=== PATIENT | male | born 1975 | race African-American/Black ===

== ENCOUNTER 2017-02-12 22:17 | Emergency (ER) | payer MEDICAID ==
[~2017-02-12] VITALS: Ht 177.8 cm; Wt 63.5 kg
[~2017-02-12 22:17] MED LIST: ADVIL200 M2 ORAL; ALBUTEROL SULF8.5 GM INH; DOXYCYCLINE MO100 MG ORAL
[2017-02-12 22:30] VITALS: BP 113/65
[2017-02-12] MEDS ORDERED: Ketorolac 30mg Inj IV ONE (23:00)
[2017-02-12 23:30] LABS: MEAN CORPUSCULAR HEMOGLOBIN 25.4 PG (27.0-31.0); MEAN CORPUSCULAR HGB CONC 32.7 G/DL (32.0-36.0); MEAN CORPUSCULAR VOLUME 77 FL (80-99); MEAN PLATELET VOLUME 4.9 FL (6.5-10.1); PLATELET COUNT 282 K/UL (150-450); RED BLOOD COUNT 2.64 M/UL (4.70-6.10); RED CELL DISTRIBUTION WIDTH 14.3 % (11.6-14.8)
[2017-02-12 23:46] LABS: ALANINE AMINOTRANSFERASE 45 U/L (3-41); ALBUMIN/GLOBULIN RATIO 1.7 (1.0-2.7); ANION GAP 15 (5-15); ASPARTATE AMINO TRANSFERASE 42 U/L (5-40); CALCIUM 8.3 mg/dL (8.6-10.2); CARBON DIOXIDE 24 mEQ/L (20-30); CHLORIDE 100 mEQ/L (98-107); CREATININE 0.8 mg/dL (0.7-1.2); GLOMERULAR FILTRATION RATE > 60 mL/min (>60); HEMOLYSIS 1; LIPASE 22 U/L (< 60); POTASSIUM 3.4 mEQ/L (3.4-4.9); SODIUM 139 mEQ/L (135-145); TOTAL PROTEIN 6.5 g/dL (6.6-8.7)
[2017-02-13 00:21] LABS: PROTHROMBIN TIME 10.6 SEC (9.30-11.50)
[2017-02-13 01:30] VITALS: BP 146/62
[2017-02-13 01:52] VITALS: BP 118/72
--- NOTE | 2017-02-13 01:57 | Emergency Room Report ---
History of Present Illness General Chief Complaint: Gastrointestinal Bleed Source: Patient Present Illness HPI Is a 40-year-old male with no past medical history. He presents with chief complaint of generalized weakness. He said for about a week now he has been complaining abdominal cramps with profuse diarrhea. Notice some blood in the stool. Has been having this problem intermittently for several months. Diarrhea resolved now. Now with nausea and vomiting x2 today. He came in because he felt very weak. Any exertion with tire now. No chest pain. No nausea no vomiting. No fever or chills. No Weight loss. Allergies: Coded Allergies: No Known Allergies (Unverified , 08/21/15) Patient History Past Medical History: none, see triage record, old chart reviewed Past Surgical History: none Pertinent Family History: none Social History: Denies: drug use Immunizations: other Reviewed Nursing Documentation: PMH: Agreed, PSxH: Agreed Nursing Documentation-[facility] Past Medical History: No Stated History Review of Systems Constitutional: Reports: weakness Eye: Denies: blurred vision, eye pain ENT: Denies: ear pain, nose congestion, throat swelling Respiratory: Denies: cough, shortness of breath Cardiovascular: Denies: chest pain, palpitations Gastrointestinal: Reports: abdominal pain, diarrhea, nausea, vomiting Musculoskeletal: Denies: back pain, joint pain Skin: Denies: rash Neurological: Denies: headache, numbness Endocrine: Denies: increased thirst, increased urine Hematologic/Lymphatic: Denies: easy bruising All Other Systems: negative except mentioned in HPI Physical Exam Vital Signs Date Time Temp Pulse Resp B/P Pulse Ox O2 Delivery O2 Flow Rate FiO2 02/12/17 22:30 67 14 113/65 100 Room Air 02/12/17 22:33 98.4 vitals normal Sp02 EP Interpretation: reviewed, normal General Appearance: well appearing, no apparent distress, alert Head: normocephalic, atraumatic Eyes: bilateral eye EOMI, bilateral eye PERRL, bilateral eye conjunctivae pale ENT: hearing grossly normal, normal pharynx Neck: full range of motion, supple, no meningismus Respiratory: chest non-tender, lungs clear, normal breath sounds Cardiovascular #1: regular rate, rhythm, no murmur Gastrointestinal: normal bowel sounds, non tender, no mass, no organomegaly, no bruit, non-distended Musculoskeletal: back normal, gait/station normal, normal range of motion Psychiatric: mood/affect normal Skin: warm/dry Medical Decision Making Diagnostic Impression: Primary Impression: Anemia Qualified Codes: D50.8 - Other iron deficiency anemias Additional Impressions: Abdominal pain Qualified Codes: R10.84 - Generalized abdominal pain Nausea vomiting and diarrhea ER Course Patient presents with anemia requiring blood transfusion. This is most likely chronic in nature. No evidence of acute bleeding. The rectal bleeding is most likely hemorrhoidal bleeding. He will need further workup. He consented for blood transfusion. I discussed the case with Dr. Andrade who accepted pt for transfer to [facility]. No evidence of acute abdomen. No evidence of obstruction. Laboratory Tests Test 02/12/17 23:00 02/13/17 00:00 White Blood Count 6.0 K/UL (4.8-10.8) Red Blood Count 2.64 M/UL (4.70-6.10) L Hemoglobin 6.7 G/DL (14.2-18.0) *L Hematocrit 20.4 % (42.0-52.0) L Mean Corpuscular Volume 77 FL (80-99) L Mean Corpuscular Hemoglobin 25.4 PG (27.0-31.0) L Mean Corpuscular Hemoglobin Concent 32.7 G/DL (32.0-36.0) Red Cell Distribution Width 14.3 % (11.6-14.8) Platelet Count 282 K/UL (150-450) Mean Platelet Volume 4.9 FL (6.5-10.1) L Neutrophils (%) (Auto) % (45.0-75.0) Lymphocytes (%) (Auto) % (20.0-45.0) Monocytes (%) (Auto) % (1.0-10.0) Eosinophils (%) (Auto) % (0.0-3.0) Basophils (%) (Auto) % (0.0-2.0) Sodium Level 139 mEQ/L (135-145) Potassium Level 3.4 mEQ/L (3.4-4.9) Chloride Level 100 mEQ/L (98-107) Carbon Dioxide Level 24 mEQ/L (20-30) Anion Gap 15 (5-15) Blood Urea Nitrogen 13 mg/dL (7-23) Creatinine 0.8 mg/dL (0.7-1.2) Estimat Glomerular Filtration Rate > 60 mL/min (>60) Glucose Level 89 mg/dL (74-106) Calcium Level 8.3 mg/dL (8.6-10.2) L Total Bilirubin 0.5 mg/dL (0.0-1.2) Aspartate Amino Transf (AST/SGOT) 42 U/L (5-40) H Alanine Aminotransferase (ALT/SGPT) 45 U/L (3-41) H Alkaline Phosphatase 40 U/L (40-129) Total Protein 6.5 g/dL (6.6-8.7) L Albumin 4.1 g/dL (3.5-5.2) Globulin 2.4 g/dL Albumin/Globulin Ratio 1.7 (1.0-2.7) Lipase 22 U/L (< 60) Prothrombin Time 10.6 SEC (9.30-11.50) Prothromb Time International Ratio 1.0 (0.9-1.1) Activated Partial Thromboplast Time 23 SEC (23-33) Lab Results Impression labs with anemia Rhythm Strip Diag. Results EP Interpretation: yes Rate: 72 Rhythm: NSR CT/MRI/US Diagnostic Results CT/MRI/US Diagnostic Results : Imaging Test Ordered: CT abdomen and pelvis Impression read by radiologist. Negative. Last Vital Signs Date Time Temp Pulse Resp B/P Pulse Ox O2 Delivery O2 Flow Rate FiO2 02/13/17 01:09 98.5 02/12/17 22:33 92 16 112/69 99 Room Air Status: improved Disposition: XFER SHT-TRM HOSP Referrals: [facility],REFERRING (PCP) LINDSAY CHRISTIAN M.D. Feb 13, 2017 01:57
[2017-02-13 02:07] VITALS: BP 121/71
[2017-02-13 03:00] VITALS: BP 106/68
[2017-02-13 03:30] VITALS: BP 118/62
--- NOTE | 2017-02-13 09:03 | Diagnostic Imaging Report ---
Indications: Abdominal pain Technique: Continuous helical CT imaging of the abdomen and pelvis was performed with automatic exposure control following administration of nonionic IV contrast only, on a Siemens sensation [address] scanner. Axial, coronal, sagittal images were reconstructed at 5 mm slice thickness. No oral contrast was administered per requesting physician's order, despite no contraindications listed. CTDI volume(s): 18 mGy Total DLP: 1071 mGy-cm Findings: Comparison: None Lack of oral contrast limits evaluation of gastrointestinal tract, nondilated throughout. Appendix unremarkable. No obvious mural thickening, adjacent stranding, extraluminal gas or fluid collections identified. Liver parenchyma diffusely decreased attenuation. No obvious surface contour or focal parenchymal abnormality. 2 mm nodular calcific focus upper pole left kidney. No collecting system dilation. Urinary bladder poorly distended with apparent mild diffuse mural thickening. Asymmetric atrophy of right iliopsoas, gluteal, other right hemipelvic muscles. Right iliofemoral artery significantly smaller in caliber than left. Gallbladder, pancreas, spleen, adrenal glands, right kidney, unopacified ureters, prostate, seminal vesicles, remaining vascular structures, retroperitoneum, mesentery, remainder visualized abdominopelvic anatomy unremarkable. Increased interstitial markings and dependent portions of both lung bases. Mild scoliosis of lumbar spine. 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 IMPRESSION: No evidence of acute abdominopelvic disease, with limitation as described. Subtle but potentially significant abnormalities the gastrointestinal tract may be missed. Repeat CT scan with full oral and IV contrast preparation recommended for more complete evaluation, as clinically indicated Apparent mild mural thickening of urinary bladder--underdistention versus hypertrophy versus cystitis Right hemipelvic/lower extremity atrophy, nonspecific, may be developmental or acquired. Associated hypoplasia of the bony right hemipelvis and suggestion of right hip dysplasia favoring developmental abnormality Hepatic steatosis Nonobstructive left nephrolithiasis Pulmonary bibasal interstitial prominence, nonspecific, likely compressive This correlates with [facility] preliminary report.
== END 2017-02-13 03:42 | disposition short-term general hospital (02) ==
LOC: EMR 23:03
DX: D64.9 Anemia, unspecified (principal); R11.2 Nausea with vomiting, unspecified; R19.7 Diarrhea, unspecified; R10.9 Unspecified abdominal pain; R53.1 Weakness
CPT/HCPCS: 36415; 74177; 80053; 83690; 85025; 85610; 85730; 86850; 86900; 86901; 86920; 96374; 96375; 99285; J1885; J2405; P9016; Q9967

== ENCOUNTER 2017-09-20 18:30 | Emergency (ER) | payer MEDICAID ==
[~2017-09-20] VITALS: Ht 177.8 cm; Wt 99.8 kg
--- NOTE | 2017-09-20 19:05 | Emergency Room Report ---
History of Present Illness General Chief Complaint: General Complaint Source: Patient, Medical Record Present Illness HPI Patient presents with 2 problems. One is passing bright red blood per rectum. History of hemorrhoids. He was evaluated for these a year ago at [place] with a CT scan and endoscopy. Endoscopy was negative. He's not had a colonoscopy. Hemoglobin was 6.5 when transferred. Transfused. The problem this time is 2 weeks of intermittent bleeding from his rectum. He was prescribed ferrous sulfate. Also is prescribed Colace a second visit and finally a third medication he is on (Iftikhar) not know the name of the medicine. The last medicine prescribed help with decreasing the rectal bleeding until today. Chronic constipation with straining with passing stool. The second problem is that he's had some vomiting yesterday. He is no more nausea at this time. No fevers, URI, cough, chest pain, dizziness, abdominal pain, dysuria. Allergies: Coded Allergies: No Known Allergies (Unverified , 08/21/15) Patient History Past Medical History: see triage record Social History: Denies: smoking Social History Narrative from [facility] Reviewed Nursing Documentation: PMH: Agreed, PSxH: Agreed Nursing Documentation-PM[facility] Past Medical History: No History, Except For Review of Systems All Other Systems: negative except mentioned in HPI Physical Exam Vital Signs Date Time Temp Pulse Resp B/P (MAP) Pulse Ox O2 Delivery O2 Flow Rate FiO2 09/20/17 18:35 98.1 80 18 138/79 98 Room Air Sp02 EP Interpretation: reviewed, normal General Appearance: well appearing, no apparent distress, GCS 15 Head: normocephalic Eyes: bilateral eye normal inspection, bilateral eye PERRL ENT: moist mucus membranes Neck: supple Respiratory: lungs clear, normal breath sounds Cardiovascular #1: regular rate, rhythm Cardiovascular #2: 2+ radial (R) Gastrointestinal: normal inspection, normal bowel sounds, non tender, no mass, non-distended Rectal: heme negative stool, other - possible fissure, no thrombosed hemorrhoids Musculoskeletal: back normal, gait/station normal, normal range of motion Neurologic: alert, oriented x3, grossly normal Psychiatric: mood/affect normal Skin: normal inspection, warm/dry Medical Decision Making Diagnostic Impression: Primary Impression: Bleeding hemorrhoid Additional Impression: Anemia Qualified Codes: D50.0 - Iron deficiency anemia secondary to blood loss ( chronic) ER Course Patient with rectal bleeding, h/o hemorrhoids and episode of vomiting yesterday. Ddx: lower GI bleed, hemorrhoids, other colonic/rectal pathology, fissure. No evidence of abscess or infection. Evaluation with labs. Denies nausea at this time and zofran not ordered. Due to exam, no IV established. Labs with anemia, though improved from prior visit. Some pyuria. No evidence of bleeding at this time. CT 01/2017: IMPRESSION: No evidence of acute abdominopelvic disease, with limitation as described. Subtle but potentially significant abnormalities the gastrointestinal tract may be missed. Repeat CT scan with full oral and IV contrast preparation recommended for more complete evaluation, as clinically indicated Apparent mild mural thickening of urinary bladder--underdistention versus hypertrophy versus cystitis Right hemipelvic/lower extremity atrophy, nonspecific, may be developmental or acquired. Associated hypoplasia of the bony right hemipelvis and suggestion of right hip dysplasia favoring developmental abnormality Hepatic steatosis Nonobstructive left nephrolithiasis Pulmonary bibasal interstitial prominence, nonspecific, likely compressive Not orthostatic Not treating urine WBC unless + culture as looks like contaminated sample. Discussed need for colonoscopy, treatment of constipation and MVI with folate and iron. Patient stable for outpatient observation and treatment. Laboratory Tests Test 09/20/17 19:25 White Blood Count 5.8 K/UL (4.8-10.8) Red Blood Count 3.92 M/UL (4.70-6.10) L Hemoglobin 8.4 G/DL (14.2-18.0) L Hematocrit 28.8 % (42.0-52.0) L Mean Corpuscular Volume 74 FL (80-99) L Mean Corpuscular Hemoglobin 21.5 PG (27.0-31.0) L Mean Corpuscular Hemoglobin Concent 29.2 G/DL (32.0-36.0) L Red Cell Distribution Width 20.7 % (11.6-14.8) H Platelet Count 433 K/UL (150-450) Mean Platelet Volume 5.1 FL (6.5-10.1) L Neutrophils (%) (Auto) 46.3 % (45.0-75.0) Lymphocytes (%) (Auto) 38.3 % (20.0-45.0) Monocytes (%) (Auto) 13.4 % (1.0-10.0) H Eosinophils (%) (Auto) 1.1 % (0.0-3.0) Basophils (%) (Auto) 0.8 % (0.0-2.0) Prothrombin Time 10.6 SEC (9.30-11.50) Prothrombin Time INR 1.0 (0.9-1.1) PTT 23 SEC (23-33) Urine Color Caprice Urine Appearance Slightly cloudy Urine pH 6.5 (4.5-8.0) Urine Specific Isabel 1.015 (1.005-1.035) Urine Protein Negative (NEGATIVE) Urine Glucose (UA) Negative (NEGATIVE) Urine Ketones Negative (NEGATIVE) Urine Occult Blood Negative (NEGATIVE) Urine Nitrite Negative (NEGATIVE) Urine Bilirubin Negative (NEGATIVE) Urine Ictotest Negative Urine Urobilinogen 1 MG/DL (0.0-1.0) H Urine Leukocyte Esterase 1+ (NEGATIVE) H Urine RBC 0 /HPF (0 - 0) Urine WBC 5-10 /HPF (0 - 0) H Urine Squamous Epithelial Cells Occasional /LPF Urine Bacteria Few /HPF (NONE) Urine Mucus Moderate /LPF (NONE/OCC) H Sodium Level 144 MMOL/L (136-145) Potassium Level 4.0 MMOL/L (3.5-5.1) Chloride Level 108 MMOL/L (98-107) H Carbon Dioxide Level 30 MMOL/L (21-32) Anion Gap 6 mmol/L (5-15) Blood Urea Nitrogen 16 mg/dL (7-18) Creatinine 1.1 MG/DL (0.55-1.30) Estimate Glomerular Filtration Rate > 60 mL/min (>60) Glucose Level 102 MG/DL (74-106) Calcium Level 8.5 MG/DL (8.5-10.1) Total Bilirubin 0.4 MG/DL (0.2-1.0) Aspartate Amino Transferase (AST) 29 U/L (15-37) Alanine Aminotransferase (ALT) 32 U/L (12-78) Alkaline Phosphatase 53 U/L (46-116) Total Protein 7.3 G/DL (6.4-8.2) Albumin 3.8 G/DL (3.4-5.0) Globulin 3.5 g/dL Albumin/Globulin Ratio 1.1 (1.0-2.7) Lipase 156 U/L (73-393) Last Vital Signs Date Time Temp Pulse Resp B/P (MAP) Pulse Ox O2 Delivery O2 Flow Rate FiO2 09/20/17 21:49 98.1 73 16 123/72 98 Room Air Status: unchanged Disposition: HOME, SELF-CARE Condition: Stable Scripts Hydrocortisone Acetate* (ANUSOL-HC*) 25 Mg Supp.rect 1 SUPP RECTAL TWICE A DAY, #20 SUPP Prov: Ej Anderson M.D. 09/20/17 Multivitamin With Minerals (MULTIVITAMINS WITH MINERALS*) 1 Each Tablet 1 TAB ORAL DAILY, #30 TAB Prov: Ej Anderson M.D. 09/20/17 Lactulose (LACTULOSE*) 20 Gm/30 Ml Solution 30 ML ORAL BID Y for constipation, #240 ML 0 Refills Prov: Ej Anderson M.D. 09/20/17 Ej Anderson M.D. Sep 20, 2017 19:05
[2017-09-20 19:15] VITALS: BP 138/79
[2017-09-20 19:42] LABS: APPEARANCE,URINE SLIGHTLY CLOUDY; BILIRUBIN, URINE NEGATIVE (NEGATIVE); COLOR,URINE AMBER; GLUCOSE, URINE (UA) NEGATIVE (NEGATIVE); KETONES,URINE NEGATIVE (NEGATIVE); LEUKOCYTE ESTERASE ,URINE 1+ (NEGATIVE); NITRITE,URINE NEGATIVE (NEGATIVE); PH,URINE 6.5 (4.5-8.0); PROTEIN,URINE NEGATIVE (NEGATIVE); UROBILINOGEN,URINE 1 MG/DL (0.0-1.0)
[2017-09-20 19:49] LABS: BASOPHILS % (AUTO) 0.8 % (0.0-2.0); EOSINOPHILS % (AUTO) 1.1 % (0.0-3.0); HEMATOCRIT 28.8 % (42.0-52.0); HEMOGLOBIN 8.4 G/DL (14.2-18.0); LYMPHOCYTES % (AUTO) 38.3 % (20.0-45.0); MEAN CORPUSCULAR VOLUME 74 FL (80-99); MONOCYTES % (AUTO) 13.4 % (1.0-10.0); NEUTROPHILS % (AUTO) 46.3 % (45.0-75.0); PLATELET COUNT 433 K/UL (150-450); RED BLOOD COUNT 3.92 M/UL (4.70-6.10); RED CELL DISTRIBUTION WIDTH 20.7 % (11.6-14.8); WHITE BLOOD COUNT 5.8 K/UL (4.8-10.8)
[2017-09-20 20:04] LABS: ANION GAP 6 mmol/L (5-15); BLOOD UREA NITROGEN 16 mg/dL (7-18); CALCIUM 8.5 MG/DL (8.5-10.1); CARBON DIOXIDE 30 MMOL/L (21-32); CHLORIDE 108 MMOL/L (98-107); CREATININE 1.1 MG/DL (0.55-1.30); SODIUM 144 MMOL/L (136-145)
[2017-09-20 20:15] LABS: ALANINE AMINOTRANSFERASE 32 U/L (12-78); ALBUMIN 3.8 G/DL (3.4-5.0); ALBUMIN/GLOBULIN RATIO 1.1 (1.0-2.7); ALKALINE PHOSPHATASE 53 U/L (46-116); ASPARTATE AMINO TRANSFERASE 29 U/L (15-37); BILIRUBIN,TOTAL 0.4 MG/DL (0.2-1.0)
[2017-09-20 21:15] VITALS: BP 123/72
[2017-09-20] MEDS ORDERED: MULTIVITAMINS1 EAC8 ORAL (21:37)
[2017-09-20] MEDS ORDERED: ANUSOL-HC25 MG RECTAL (21:37)
[2017-09-20] MEDS ORDERED: LACTULOSE20 GM/301 ORAL (21:37)
[2017-09-20 21:49] VITALS: BP 123/72
== END 2017-09-20 21:49 | disposition home or self-care (01) ==
LOC: EMR 19:00
DX: K64.9 Unspecified hemorrhoids (principal); D64.9 Anemia, unspecified; R11.10 Vomiting, unspecified
CPT/HCPCS: 36415; 80053; 81003; 83690; 85025; 85610; 85730; 99284